=== PATIENT | female | born 1950 | race Caucasian/White ===

== ENCOUNTER → 2016-10-24 | Outpatient (CLI) | payer MEDICARE, BC ==
--- NOTE | 2016-10-24 09:32 | Diagnostic Imaging Report ---
EXAM: RENAL ULTRASOUND DATE: October 24, 2016. COMPARISON: March 02, 2016. INDICATION: 66-year-old female, renal cyst. PROCEDURE: Two-dimensional grayscale and color doppler examination of the kidneys is performed. FINDINGS: Right kidney: Unremarkable right kidney. No hydronephrosis. The right kidney measures 10.0 cm x 4.8 x 5.5 cm. Left kidney: There is a nearly anechoic left renal lesion which measures 4.6 x 5.0 x 5.0 cm in size with thin internal septation. There is no demonstrated internal blood flow. No hydronephrosis. The left kidney measures 10.8 cm x 5.2 x 6.5 cm. Bladder: Unremarkable. IMPRESSION: 1. Bosniak category 2 benign left renal cyst measuring up to 4.6 x 5.0 x 5.0 cm in size. Dictated by: Dictated on workstation # [id number]
== END ==
LOC: RAD 08:20
PROVIDERS: ATTEND Family Medicine
DX: N28.1 Cyst of kidney, acquired (principal)
CPT/HCPCS: 76770